=== PATIENT | female | born 1940 | race Caucasian/White ===

== ENCOUNTER 2019-04-15 03:13 | Emergency (ER) | payer OTHER ==
[~2019-04-15] VITALS: Ht 152.4 cm; Wt 46.0 kg
[2019-04-15] MEDS ORDERED: SODIUM CHLORIDE 0.9% 1,000 ML IV ONE (04:33)
[2019-04-15] MEDS ORDERED: ONDANSETRON HCL 4MG/2ML INJ IV STA (04:33)
[2019-04-15 04:54] LABS: BASOPHILS % 0.2 % (0.0-2.0); EOSINOPHILS % 2.6 % (0.0-5.0); HEMATOCRIT. 36.4 % (36.0-48.0); HEMOGLOBIN. 12.2 g/dL (12.0-16.0); LYMPHOCYTES % 5.3 % (20.0-50.0); MEAN CORPUSCULAR HEMOGLOBIN 28.9 pg (28.0-32.0); MEAN CORPUSCULAR VOLUME 86.1 fL (81.0-99.0); MEAN PLATELET VOLUME 10.3 fl (7.4-10.4); MONOCYTES % 3.3 % (2.0-8.0); NEUTROPHILS % 88.6 % (40.0-76.0); PLATELET 66 x1000/uL (130-400); RED BLOOD CELL COUNT 4.23 mill/uL (4.2-5.4); RED CELL DISTRIBUTION WIDTH 16.3 % (11.6-14.6)
[2019-04-15 05:01] LABS: CHLORIDE 105 mEq/L (98-107)
[2019-04-15 08:15] VITALS: BP 120/54
== END 2019-04-15 08:43 | disposition short-term general hospital (02) ==
LOC: ER 03:13 → CANBEDREQ 06:37 → ER 08:43
DX: R53.83 Other fatigue (principal); E86.0 Dehydration; I10 Essential (primary) hypertension; F03.90 Unspecified dementia, unspecified severity, without behavioral disturbance, psychotic disturbance, mood disturbance, and anxiety
CPT/HCPCS: 36415; 71045; 80053; 83605; 84484; 85025; 87040; 93005; 96361; 96374; 99285; J2405; J7030